=== PATIENT | male | born 2000 | race Caucasian/White ===

== ENCOUNTER 2024-01-13 09:53 | Oncology outpatient (recurring) (ONCR) | payer OTHER, SELFPAY ==
[2024-01-13 10:40] LABS: Basophils % 0.3 %; Eosinophils # 0.1 10^3/uL (0.0-0.8); Eosinophils % 0.6 %; Erythrocyte Sedimentation Rate 4 mm/hr (0-10); Hematocrit 48.7 % (37-53); Lymphocytes # 1.8 10^3/uL (0.8-4.8); Lymphocytes % 12.8 %; Mean Corpuscular HGB Conc 34.7 g/dL (30-55); Mean Corpuscular Hemoglobin 30.1 pg (27-33); Mean Corpuscular Volume 86.7 fl (82-101); Mean Platelet Volume 10.2 fL (7.4-10.4); Monocytes # 0.9 10^3/uL (0.2-0.9); Monocytes % 6.3 %; Neutrophils # 11.01 10^3/uL (1.8-7.7); Neutrophils % 79.5 %; Nucleated Red Blood Cells % 0 %; Platelet Count 321 10^3/cmm (157-399); Red Blood Count 5.62 10^6/uL (3.85-5.65); White Blood Count 13.87 10^3/uL (3.29-11.43)
[2024-01-13 10:45] LABS: LAB Peripheral Smear Sent for Review
[2024-01-13 11:36] LABS: Alanine Aminotransferase 15 U/L (0-41); Albumin Level 4.4 g/dL (3.5-5.2); Alkaline Phosphatase 115 U/L (40-130); Anion Gap 14.7 (5-19); Aspartate Amino Transferase 16 U/L (0-40); Blood Urea Nitrogen 17 mg/dL (6-20); Calcium 9.3 mg/dL (8.5-10.5); Carbon Dioxide 23 mmol/L (22-29); Chloride 103 mmol/L (98-107); Creatinine Clr Calc Pharmacy 151.5547; Globulin 2.5 g/dL (1.3-4.6); Glomerular Filtration Rate 103.7 mL/min (90-130); Glucose 96 mg/dL (65-115); Iron 59 ug/dL (59-158); Lactate Dehydrogenase 174 U/L (135-225); Osmolality Calculated 285 mOsm/kg (285-295); Percent Saturation 20.4 % (20-50); Potassium 3.7 mmol/L (3.5-5.1); Sodium 137 mmol/L (136-145); Thyroid Stimulating Hormone 1.54 uIU/mL (0.27-4.20); Total Bilirubin 0.3 mg/dL (0.15-1.2); Total Iron Binding Capacity 289 mcg/dl; Total Protein 6.9 g/dL (6.6-8.7); Unsaturated Iron Binding 230 ug/dL (112-347); Vitamin B12 456 pg/mL (232-1245)
== END 2024-01-31 23:59 | disposition home or self-care (01) ==
PROVIDERS: Visit Provider Internal Medicine Medical Oncology
DX: D72.829 Elevated white blood cell count, unspecified (principal); R53.83 Other fatigue; Z53.9 Procedure and treatment not carried out, unspecified reason
CPT/HCPCS: 36415; 80053; 82607; 83540; 83550; 83615; 84443; 85025; 85651; 86140